=== PATIENT | female | born 1935 | race Caucasian/White ===

== ENCOUNTER 2022-01-05 09:57 | Outpatient (CLI) | payer MEDICARE, BC ==
[~2022-01-05] VITALS: Ht 162.6 cm; Wt 69.3 kg
[2022-01-05] VITALS (9 sets, daily range): BP systolic 117–170; BP diastolic 56–81; PULSE 63–83; TEMP 98.1
[2022-01-05] MEDS ORDERED: FOSAMAX 70MG TA70 MG PO (11:22)
[2022-01-05] MEDS ORDERED: SENOKOT S 50 MG1 TAB PO (11:24)
[2022-01-05] MEDS ORDERED: NORCO 325 MG-51 TAB PO (11:25)
[2022-01-05] MEDS ORDERED: MILK OF MA400 MG/52 PO (11:26)
[2022-01-05] MEDS ORDERED: MIRALAX PA17 GM/Dose PO (11:27)
[2022-01-05] MEDS ORDERED: TYLENOL 500MG500 MG PO (11:27)
[2022-01-05] MEDS ORDERED: TYLENOL SU650 MG/SUP RC (11:28)
[2022-01-05] MEDS ORDERED: BUSPAR10 MG PO (11:28)
[2022-01-05] MEDS ORDERED: CELEXA 20MG20 MG/TAB PO (11:30)
[2022-01-05] MEDS ORDERED: MELATIN 3 MG-11 TAB PO (11:31)
[2022-01-05] MEDS ORDERED: GLUCOPHAGE500 MG/TAB PO (11:31)
[2022-01-05] MEDS ORDERED: LOPRESSOR 225 MG/TAB PO (11:32)
[2022-01-05] MEDS ORDERED: PREDNISONE10 MG PO (11:33)
[2022-01-05] MEDS ORDERED: CALCIUM 600MG+D1 TAB PO (11:34)
[2022-01-05] MEDS ORDERED: ALDACTONE 25MG25 M1 PO (11:34)
[2022-01-05] MEDS ORDERED: TOPAMAX 25MG25 M1 PO (11:34)
[2022-01-05] MEDS ORDERED: LIDODERM 5% PATC1 EA TP (11:35)
[2022-01-05] MEDS ORDERED: ANTIVERT 25MG25 MG PO (11:36)
[2022-01-05] MEDS ORDERED: BACTROBAN 22GM22 GM TP (11:36)
[2022-01-05] MEDS ORDERED: CRESTOR5 MG PO (11:38)
[2022-01-05] MEDS ORDERED: MIRAPEX0.5 MG PO (11:38)
[2022-01-05] MEDS ORDERED: TOBREX0.3% OU (11:39)
[2022-01-05] MEDS ORDERED: ZANAFLEX2 MG PO (11:39)
--- NOTE | 2022-01-05 12:03 | NUR ---
Pt to procedure,report to Gerson herrera.
--- NOTE | 2022-01-05 12:21 | NUR ---
SEE MERGE FOR VITAL SIGNS, ASSESSMENTS, INTERVENTIONS AND MEDICATIONS GIVEN.
--- NOTE | 2022-01-05 13:23 | NUR ---
Patient moved self from bed to procedure table and a fresh skin tear was noted on the right forearm. Gauze and tape were placed over the tear. NARGIS Mckee was notified and both RNs visualized the skin tear during bedside report following the procedure. Patient does not report any pain at this time.
--- NOTE | 2022-01-05 16:07 | NUR ---
Discharge instructions given to pt.pt verbalizes understanding.pt escorted out via wheelchair by this nurse.
== END 2022-01-05 17:07 ==
LOC: COL.CAR 09:57
DX: S32.030A Wedge compression fracture of third lumbar vertebra, initial encounter for closed fracture (principal)
CPT/HCPCS: C1713; J2250; J3010